=== PATIENT | male | born 1945 | race Caucasian/White ===

== ENCOUNTER → 2017-11-12 | Outpatient (CLI) | payer MEDICARE, BC | END | disposition home or self-care (01) | LOC: RAD 17:11 | PROVIDERS: ATTEND Nurse Practitioner | DX: S50.12XA Contusion of left forearm, initial encounter (principal); M79.602 Pain in left arm; M79.89 Other specified soft tissue disorders; X58.XXXA Exposure to other specified factors, initial encounter ==